=== PATIENT | female | born 1950 ===

== ENCOUNTER 2017-08-23 12:30 | Outpatient (RCR) | payer OTHER | END 2017-08-30 | disposition home or self-care (01) | LOC: PTY 12:30 | DX: M17.10 Unilateral primary osteoarthritis, unspecified knee (principal) ==

== ENCOUNTER 2017-09-06 13:35 | Outpatient (RCR) | payer OTHER | END 2017-09-30 | disposition home or self-care (01) | LOC: PTY 13:35 | DX: M17.10 Unilateral primary osteoarthritis, unspecified knee (principal) | CPT/HCPCS: 97032; 97110; 97140; G0283 ==

== ENCOUNTER 2017-10-05 13:00 | Outpatient (RCR) | payer OTHER | END 2017-10-30 | disposition home or self-care (01) | LOC: PTY 13:00 | DX: M17.10 Unilateral primary osteoarthritis, unspecified knee (principal) ==